=== PATIENT | female | born 1965 | race Caucasian/White ===

== ENCOUNTER → 2024-11-26 10:18 | Outpatient (CLI) | payer OTHER, SELFPAY ==
[2024-11-26 18:49] LABS: Add Manual Diff / Slide Review NO; Basophils Absolute Auto 0 /uL (0-100); Basophils Percent Auto 0.5 % (0-2); Eosinophils Absolute Auto 200 /uL (0-450); Eosinophils Percent Auto 3.6 % (2-4); Hematocrit 38.8 % (36-46); Lymphocytes Absolute Auto 1700 /uL (1100-4500); Lymphocytes Percent Auto 27.9 % (25-40); Mean Corpuscular HGB Conc 33.5 % (30-36); Mean Corpuscular Hemoglobin 26.3 PG (26-34); Mean Corpuscular Volume 78.4 fL (80-100); Monocytes Absolute Auto 500 /uL (0-900); Monocytes Percent Auto 9.1 % (3-14); Neutrophils Absolute Auto 3500 /uL (1500-7000); Neutrophils Percent Auto 58.9 % (50-75); Platelet Count 244 X10^3/uL (150-400); Red Blood Cell Count 4.94 X10^6/uL (4.0-5.2); Red Cell Distribution Width 15.4 % (11.6-14.8)
[2024-11-26 18:58] LABS: Alanine Aminotransferase 28 IU/L (<35); Albumin 4.3 g/dL (3.5-5.0); Albumin Globulin Ratio 1.7 (1.0-2.8); Alkaline Phosphatase 91 U/L (38-126); Aspartate Aminotransferase 35 IU/L (14-36); BUN Creatinine Ratio 13.4 (6-22); Bilirubin Total 0.7 mg/dL (0.2-1.3); Blood Urea Nitrogen 11 mg/dL (7-17); Calcium 9.6 mg/dL (8.4-10.2); Carbon Dioxide 29 mmol/L (22-32); Chloride 104 mmol/L (98-107); Cholesterol 174 mg/dL (140-199); Estimated Glomerular Filt Rate > 60 mL/min (>60); Globulin 2.5 g/dL (1.7-4.1); Glucose 96 mg/dL (70-99); HDL Cholesterol 67 mg/dL (40-60); HEMOLYSIS < 15 (0-50); LDL Cholesterol Calculated 88 mg/dL (<100); Sodium 141 mmol/L (137-145); Total Protein 6.8 g/dL (6.3-8.2); Triglycerides 97 mg/dL (35-150)
[2024-11-26 19:08] LABS: Hemoglobin A1C% w Est Avg Glu 5.6 % (4.0-6.0)
[2024-11-26 19:26] LABS: TSH w/ Reflex to FT4 1.77 uIU/mL (0.47-4.68)
== END ==
PROVIDERS: PCP Physician Assistant; Visit Provider Physician Assistant
DX: Z13.6 Encounter for screening for cardiovascular disorders (principal); I10 Essential (primary) hypertension; E66.01 Morbid (severe) obesity due to excess calories; Z68.43 Body mass index [BMI] 50.0-59.9, adult; Z79.899 Other long term (current) drug therapy; N93.9 Abnormal uterine and vaginal bleeding, unspecified; N85.9 Noninflammatory disorder of uterus, unspecified
CPT/HCPCS: 80053; 80061; 83036; 84443; 85025

== ENCOUNTER → 2025-02-11 09:16 | Outpatient (CLI) | payer OTHER, SELFPAY ==
--- NOTE | 2025-02-11 09:17 | DI.RAD.S_ITS ---
PROCEDURE: XR KNEE RT 3V INDICATIONS: right knee pain TECHNIQUE: 3 views of the knee were acquired. COMPARISON: None. FINDINGS: Bones: There are no osseous abnormalities. Joints: Moderate patellofemoral and medial tibial femoral degeneration appreciated. No effusion Effusion Soft tissues: Normal IMPRESSION: Moderate degeneration. Dictated by: Arnulfo Dunn M.D. on 02/12/2025 at 10:42 Approved by: Arnulfo Dunn M.D. on 02/12/2025 at 10:43
== END ==
PROVIDERS: PCP Physician Assistant; Referring Provider Physician Assistant; Visit Provider Physician Assistant
DX: M17.11 Unilateral primary osteoarthritis, right knee (principal); M25.561 Pain in right knee; E66.01 Morbid (severe) obesity due to excess calories; Z68.43 Body mass index [BMI] 50.0-59.9, adult
CPT/HCPCS: 73562

== ENCOUNTER 2025-02-14 09:44 | Day surgery (SDC) | payer OTHER, SELFPAY ==
[2025-02-08 14:44] VITALS: BMI 54.5
[2025-02-14] VITALS (8 sets, daily range): BP systolic 100–153; BP diastolic 56–78; PULSE 57–73; RESP 14–18; TEMP 36.1–36.8; O2SAT 96–100; BMI 54.5
--- NOTE | 2025-02-14 | PATH_ITS ---
[facility] Accession Number: [id number] No. of containers..01 Tissue . 01 Material submitted: . endometrium - UTERINE CURETTINGS . 01 Diagnosis: UTERINE CURETTINGS: Disordered proliferative endometrium; negative for glandular hyperplasia, cytologic atypia, or malignancy. Fragments of myometrium; negative for significant atypia. Some endometrial fragments demonstrate prominent vessels, suggestive of polyp, if clinical and imaging studies are concordant. MRV 02/27/2025 0921 Local . 01 Electronically signed: . Martha Barksdale MD, Pathologist NPI- [id number] . 01 Gross description: . UTERINE CURETTINGS: Received in formalin are minute fragments of mucoid and hemorrhagic material measuring 4.0 x 4.0 x 0.3 cm in aggregate. Submitted in toto in 2 cassettes. /AKIN 02/21/2025 1708 Local . 01 Pathologist provided ICD-10: N93.9 . 01 CPT . 799823 Specimen Comment: A courtesy copy of this report has been sent to [facility] Performed at: [address] [address], [place], [place] [id number] MD Israel Nolasco MD Phone: [phone]
--- NOTE | 2025-02-14 10:23 | P.HPOB_ITS ---
History of Present Illness History of Present Illness Narrative: Larisa Waters is a 59 year old female presenting today for planned hysteroscopy with D&C due to postmenopausal bleeding. 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 She continues to have almost daily bleeding. 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 Otherwise denies any new symptoms. [facility] Medical History (Updated 02/14/25 @ 10:26 by Sana Salgado, ) Pre-diabetes Hyperlipidemia Wears contact lenses Lipedema of lower extremity Acne Sleep apnea Allergies Foot pain Ankle pain Chicken pox Irregular menstrual cycle Heavy menstrual period Genital warts Abnormal Pap smear of cervix Hypertension (~2014) Seborrheic keratoses Morbid obesity with BMI of 50.0-59.9, adult Family History (Updated 11/26/24 @ 19:36 by Tavia Barnes) Father History of heart disease Multiple myeloma Cancer Mother Lipedema History of heart disease Diabetes mellitus Hypertension Grandmother Cancer Social History household members: spouse Smoking Status: Never smoker Meds Home Medications and Allergies Home Medications ?Medication ?Instructions ?Recorded ?Confirmed ?Type aspirin 81 mg tablet,delayed 81 mg PO DAILY 10/30/24 0 02/14/25 History release (Adult Aspirin Regimen) calcium acetate 667 mg tablet 667 mg PO ONCE 10/30/24 02/14/25 History multivitamin 1 tab PO DAILY 10/30/2401/29 History triamcinolone acetonide 0.5 % 1 applic topical DAILY 0 10/30/24 02/06/25 History topical cream amlodipine 10 mg tablet 10 mg PO DAILY #90 tabs 11/2902/14/25 Rx hydrochlorothiazide 25 mg tablet 25 mg PO DAILY #90 ta bs 12/10/24 02/14/25 Rx losartan 50 mg tablet 50 mg PO DAILY #90 tabs 11/2902/14/25 Rx tirzepatide (weight loss) 5 mg/0.5 5 mg SUBCUT QWEEK 0 02/06/25 02/08/25 History mL subcutaneous pen injector (Zepbound) Allergies Allergy/AdvReac Type Severity Reaction Status Date / Time Sulfa (Sulfonamide Allergy Mild Hives Verified 02/06/25 11:09 Antibiotics) Penicillins Allergy Hives Verified 02/06/25 11:09 Review of Systems Review of Systems ROS: Yes All systems reviewed with the patient and are negative except as otherwise documented Exam Vital Signs (past 8 hours): - 02/14/25 10:08 Temperature 98.3 F Pulse Rate 73 Respiratory Rate 17 Blood Pressure 153/76 H Pulse Oximetry 96 Oxygen Delivery Method Room Air Oxygen Delivery Method Room Air Const General: comfortable and No acute distress Nutritional Appearance: obese Resp Effort & Inspection: normal respiratory effort and able to speak in complete sentences Skin General: no rashes or lesions noted Neuro Cognition: normal cognition Speech: speech normal Psych Mood: congruent mood Affect: normal affect Objective Labs Labs: Laboratory Results - last 24 hr 02/14/25 10:10 POC Whole Bld Glucose 103 H Assessment & Plan Assessment and plan (1) Postmenopausal bleeding: Status: Acute (2) Abnormal uterine bleeding due to disorder of endometrium: Status: Acute Assessment & Plan narrative: 59yo F with AUB-E, counseled and consented for hysteroscopy with D&C. We revie wed the surgical consent today. -plan for same day procedure -will call patient with pathology results when available Surgery consent We discussed the risks/benefits/alternatives to the proposed procedure, to include but not limited to: -risk of bleeding, requiring medications, blood products, or other procedures as indicated -risk of infection, requiring prolonged hospital stay or other procedures -risk of injury to other structures, including bowel, bladder, blood vessels, nerves, etc. which may also require additional procedures -risk of adverse reaction to anesthesia or medications -risk of venous thromboembolism and associated sequelae -risk of rare complications such as cardiac arrest, or extremely rarely, Patient is aware of the risks, and desires to proceed with planned surgical procedure. Time-Based Coding :: [20min] spent with patient and on the chart (including review of chart, obtaining history, exam, reviewing outside data, placing orders, documenting exam and treatment plan, and counseling patient) on [02/14/25].
[2025-02-14] MEDS: SCOPOLAMINE 1 PATCH TOP (10:31)
[2025-02-14] MEDS: LACTATED RINGERS 1,000 ML 42 ML IV ×2 (10:33→12:16)
[2025-02-14] MEDS: ACETAMINOPHEN IV 1,000 MG/100 ML VIAL 400 MG IV (10:33)
[2025-02-14] MEDS: SILVER NITRATE STICK 1 EACH TOP ×2 (11:20→11:32)
--- NOTE | 2025-02-14 11:28 | PM.OP.1 ---
Operative Date/Time/Diagnoses Date of procedure: 02/14/25 Time of procedure: 10:45 Pre-op diagnosis: Abnormal uterine bleeding Post-op diagnosis: same Procedure & Clinicians Procedure: Hysteroscopy Dilation and curettage Same procedure(s) as scheduled: Yes Indications: 59yo F with abnormal uterine bleeding, with prior endometrial biopsy that showed disordered proliferative endometrium with focal gland crowding/hyperplasia, indeterminate for atypia, thus she was counseled and consented for the above procedure. Of note, if patient needs further surgical intervention, would need to be referred to a larger tertiary center due to her BMI >50. Surgeon: Sana Salgado Click Yes if Unassisted: Yes Anesthesia Type: General Operative Notes Findings: Proliferative endometrium noted, no obvious masses noted in the endometrial cavity. Specimen(s): other (uterine curettings) Applied: none Estimated Blood Loss (mL): 5 Blood products transfused: none Procedure in detail: The risks, benefits, indications and alternatives of the procedure were reviewed with the patient and informed consent was obtained. The pt was taken to the operating room where general anesthesia was obtained without difficulty. The pt was then placed in the low lithotomy position using gel-padded Hira stirrups. Sequential compression devices were placed bilaterally for VTE prophylaxis. The pt was then prepped and draped in the sterile fashion. A sterile speculum was placed in the patient?s vagina and the cervix was visualized. A single tooth tenaculum was used to grasp the anterior lip of the cervix. The operative hysteroscope was first primed and pressure set. The operative hysteroscope was then advanced through the endocervical canal under direct visualization. The uterus was distended with warm saline, and notable for the above findings. The Myosure Reach was then inserted into the operative hysteroscope. Global endometrial sampling was then performed. The operative hysteroscope was then removed under direct visualization. Tissue obtained was sent to pathology for review. The single tooth tenaculum was removed from the anterior lip of the cervix. The tenaculum site was noted to be hemostatic after direct pressure and silver nitrate was applied. All instruments were then removed from the patient?s vagina. Hysteroscopic fluid deficit was 95cc of normal saline. The patient tolerated the procedure well. At the completion of the case the sponge and needle counts were correct x 2. The patient was taken to the PACU in stable condition. Complications: none Post-operative Condition: stable Disposition: PACU Plan for aftercare: Discharge to home once patient is meeting all discharge criteria.
--- NOTE | 2025-02-14 11:41 | SUR.OPER ---
Lithotomy on padded OR bed, head and upper torso elevated wedge and on pillow, arms secured on blankets on padded arm boards at <90 degrees abduction. Legs secured in padded yellow fins stirrups, gel pads to bilateral knees.
[2025-02-14] MEDS: ONDANSETRON 4 MG/2 ML INJ IV (11:45)
[2025-02-14] MEDS: METOCLOPRAMIDE 10 MG/2 ML INJ IV (11:47)
[2025-02-14] MEDS: hydrOXYzine 50 MG/ML INJ 25 MG IM (11:52)
== END 2025-02-14 13:35 | disposition home or self-care (01) ==
PROVIDERS: PCP Physician Assistant; Referring Provider Student in an Organized Health Care Education/Training Program; Visit Provider Student in an Organized Health Care Education/Training Program
PROC: 0UDB8ZZ Extraction of Endometrium, Via Natural or Artificial Opening Endoscopic (ICD-10-PCS; CPT 58558; principal; 2025-02-14 10:45)
DX: N95.0 Postmenopausal bleeding (principal)
CPT/HCPCS: 58558; 82962; J0131; J0330; J1100; J1885; J2405; J2704; J2765; J3010; J3410